=== PATIENT | female | born 1950 | race Caucasian/White ===

== ENCOUNTER 2019-10-12 18:57 | Inpatient (IN) | payer MEDICARE, OTHER ==
[2019-10-12 19:35] LABS: #Eosinphils 0.3 thou/uL (0.0-0.7); #Lymphocytes 3.9 thou/uL (1.20-3.40); #Monocytes 1.1 thou/uL (0.11-0.59); #Neutrophils 9.9 thou/uL (1.40-6.50); %Basophils 0.2 % (0.0-1.0); %Eosinophils 2.2 % (0.0-10.0); %Lymphocytes 25.3 % (21.0-51.0); %Neutrophils 65.2 % (42.0-75.0); Hemoglobin 12.2 g/dL (12.0-16.0); Mean Corpuscular HGB CONC 34.4 g/dL (32.0-36.0); Mean Corpuscular Hemoglobin 30.8 pg (27.0-31.0); Mean Corpuscular Volume 89.6 fL (78.0-98.0); Mean Platelet Volume 7.9 fL (7.4-10.4); Platelet Count 363 thou/uL (130-400); RBC Distribution Width 13.4 % (11.5-14.5); Red Blood Cell (RBC) Count 3.96 mill/uL (4.20-5.40); White Blood Cell (WBC) Count 15.3 thou/uL (4.8-10.8)
--- NOTE | 2019-10-12 19:39 | RAD ---
PORTABLE SUPINE CHEST: 10/12/19 HISTORY: Cough. COMPARISON: 03/21/17 study. Heart size is within normal limits for supine technique. Mediastinal structures are unremarkable. The lungs are clear of infiltrates. IMPRESSION: No active intrathoracic disease. POS: [facility]
[2019-10-12 19:49] LABS: ALT (SGPT) 10 U/L (8-55); AST (SGOT) 14 U/L (5-34); Albumin 3.5 g/dL (3.4-4.8); Alkaline Phosphatase 159 U/L (40-110); Anion Gap 15 mmol/L (10-20); BUN (Urea Nitrogen) 22 mg/dL (9.8-20.1); Bilirubin, Total 0.3 mg/dL (0.2-1.2); Calc. Creatinine Clearance 0 mL/min (70-130); Calcium 8.4 mg/dL (7.8-10.44); Carbon Dioxide 23 mmol/L (23-31); Chloride 99 mmol/L (98-107); Estimated GFR-MDRD 22; Globulin 3.2 g/dL (2.4-3.5); Glucose 115 mg/dL (80-115); Potassium 4.4 mmol/L (3.5-5.1); Protein, Total 6.7 g/dL (6.0-8.3); Sodium 133 mmol/L (136-145)
[2019-10-12] MEDS ORDERED: Norepinephrine 8 MG/0.9% NS 250 ML ONE (20:02)
[2019-10-12] MEDS ORDERED: Cyclobenzaprine 10 MG TAB ONE (20:02)
[2019-10-12 20:07] LABS: Bacteria/HPF 2+ HPF (None Seen); Bilirubin Negative (Negative); Blood, Urine Negative (Negative); Clarity Turbid (Clear); Glucose, Urine (Dipstick) Normal (Negative); Leukocyte 25 Leu/uL (Negative); Nitrite Negative (Negative); Protein, Urine (Dipstick) 20 mg/dL (Neg-Trace); Urobilinogen Normal mg/dL (Less than 2)
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
--- NOTE | 2019-10-12 21:04 | RAD ---
XR Chest 1 View Portable HISTORY: Central line placement COMPARISON: Earlier examination the same day. FINDINGS: A right-sided central line is been placed. The catheter tip overlies the distal superior ve na cava. No signs of pneumothorax. No other interval change. IMPRESSION: Central line placement. No pneumothorax.
[2019-10-12] MEDS: Lactated Ringer's 1,000 ML IV SCH (22:13)
[2019-10-12 22:15] VITALS: BMI 42.4
[2019-10-12] MEDS ORDERED: Norepinephrine 8 MG/0.9% NS 250 ML IVPB SCH (22:30)
[2019-10-12 23:51] LABS: Troponin I Less than 0.010 ng/mL (< 0.028)
[2019-10-13] MEDS ORDERED: Promethazine 25 MG TAB PO PRN (01:56)
[2019-10-13] MEDS ORDERED: PROVENTIL INHALER 6.7 G (200 INHALATIONS) INH PRN (01:56)
[2019-10-13 02:56] LABS: Troponin I Less than 0.010 ng/mL (< 0.028)
[2019-10-13] MEDS: Lactated Ringer's 1,000 ML IV SCH ×3 (05:27→21:36)
[2019-10-13] MEDS: Acetaminophen 325 MG TAB PO PRN (05:37)
[2019-10-13 06:04] LABS: Anion Gap 11 mmol/L (10-20); BUN (Urea Nitrogen) 16 mg/dL (9.8-20.1); Calc. Creatinine Clearance 67 mL/min (70-130); Calcium 7.8 mg/dL (7.8-10.44); Carbon Dioxide 25 mmol/L (23-31); Chloride 107 mmol/L (98-107); Estimated GFR-MDRD 43; Glucose 109 mg/dL (80-115); Potassium 4.4 mmol/L (3.5-5.1); Sodium 139 mmol/L (136-145)
[2019-10-13 06:05] LABS: #Basophils 0.1 thou/uL (0.0-0.2); #Eosinphils 0.3 thou/uL (0.0-0.7); #Lymphocytes 3.1 thou/uL (1.20-3.40); #Monocytes 1.1 thou/uL (0.11-0.59); #Neutrophils 9.7 thou/uL (1.40-6.50); %Basophils 0.5 % (0.0-1.0); %Eosinophils 2.4 % (0.0-10.0); %Lymphocytes 21.5 % (21.0-51.0); %Monocytes 7.3 % (0.0-10.0); %Neutrophils 68.3 % (42.0-75.0); Hemoglobin 12.1 g/dL (12.0-16.0); Mean Corpuscular HGB CONC 33.7 g/dL (32.0-36.0); Mean Corpuscular Hemoglobin 30.5 pg (27.0-31.0); Mean Corpuscular Volume 90.3 fL (78.0-98.0); Mean Platelet Volume 7.9 fL (7.4-10.4); Platelet Count 336 thou/uL (130-400); RBC Distribution Width 13.3 % (11.5-14.5); Red Blood Cell (RBC) Count 3.97 mill/uL (4.20-5.40); White Blood Cell (WBC) Count 14.3 thou/uL (4.8-10.8)
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
[2019-10-13] MEDS ORDERED: Enoxaparin Sodium 40 MG/0.4 ML SYRINGE SC SCH (09:00)
[2019-10-13] MEDS: DULoxetine 30 MG CAP PO SCH ×2 (09:01→20:09)
[2019-10-13] MEDS: Gabapentin 100 MG CAP PO SCH ×2 (09:01→20:09)
[2019-10-13] MEDS: Aspirin Chewable 81 MG TAB PO SCH (09:01)
[2019-10-13] MEDS: Famotidine 20 MG TAB PO SCH (09:01)
[2019-10-13] MEDS: Heparin 5,000 UNITS/ML VIAL SC SCH ×3 (09:02→20:09)
[2019-10-13 09:23] LABS: Bilirubin Negative (Negative); Blood, Urine 2+ (Negative); Clarity Clear (Clear); Glucose, Urine (Dipstick) Normal (Negative); Leukocyte 500 Leu/uL (Negative); Nitrite Negative (Negative); Protein, Urine (Dipstick) 20 mg/dL (Neg-Trace); RBC/HPF 21-50 HPF (0-3); Squamous Epithelial 0-3 HPF (0-3); Urobilinogen Normal mg/dL (Less than 2); WBC/HPF Greater than 50 HPF (0-3)
[2019-10-13 09:33] LABS: Transitional Epithelial 0-3 HPF (None Seen)
[2019-10-13 09:34] LABS: Bacteria/HPF Rare-Few HPF (None Seen)
[2019-10-13] MEDS ORDERED: Vancomycin 1.5 GRAM/300 ML BAG 1.5 GM in Premix Bag 1 BAG IVPB SCH (10:00)
[2019-10-13] MEDS ORDERED: Piperacillin/Tazobactam 3.375 GM in Sodium Chloride 0.9% 100 ML IVPB SCH (12:00)
--- NOTE | 2019-10-13 12:19 | PDOC.BPN ---
- Brief Progress Note Appreciate recs from Dr. Meadows, recs stop levophed, stop abx, pull central line and transfer to floor Discussed case with attending physician for primary team, would like patient to remain in ICU for 4 hours as she has been difficult to wean off of levophed and then transfer to floor if still doing well. Patient appears well clinically. Tolerating PO, chatting with her daughter at bedside. Levophed off for 30 minutes now. Agree with stopping vanc/zosyn. Will de-escalate to rocephin for now
[2019-10-13] MEDS ORDERED: cefTRIAXone\\ROCEPHIN 1 GM in Sodium Chloride 0.9% 100 ML IVPB SCH (13:00)
--- NOTE | 2019-10-13 13:58 | CON ---
DATE OF CONSULTATION: HISTORY OF PRESENT ILLNESS: Bridgette Kim is a 69-year-old female. She admits she took too much of her medicine yesterday. Usually her daughter manages her medicines. There were out at [employer] shopping and did get home late. She is awake, alert, and back to her baseline according to her daughter now. She presented with altered mental status. PAST MEDICAL HISTORY: Remarkable for; 1. Cervical disk herniation. 2. History of irritable bowel. 3. History of hypertension. 4. History of anxiety and depression. 5. Reported history of COPD. 6. History of an appendectomy. 7. History of cholecystectomy. FAMILY HISTORY: Negative for lung disease in early age. SOCIAL HISTORY: She is a nonsmoker and nondrinker. REVIEW OF SYSTEMS: Ten points otherwise negative. PHYSICAL EXAMINATION: VITAL SIGNS: On exam, her blood pressure is 114/74, heart rate is 81, respiratory rate is 15, and oximetry is 95. Intakes and outputs negative 987. HEENT: Pupils are equal. Sclerae are anicteric. Extraocular movements are intact. NECK: Without lymphadenopathy. She has a right IJ. LUNGS: Clear. HEART: Regular rhythm. S1 and S2 are normal. ABDOMEN: Soft and nontender. EXTREMITIES: Without clubbing, cyanosis, or edema. NEURO: Grossly nonfocal. DIAGNOSTIC DATA: Chest x-ray shows no alveolar infiltrates. IMPRESSION AND PLAN: Antivert drug overdose. There is nothing that lead me to believe that she has sepsis. I would discontinue her central line. I will continue on her home medications. Her renal function is essentially normal now. I suspect she was dry yesterday. There is no reason to continue vancomycin in her and no reason to continue Zosyn in my opinion. She can continue IV fluids, but needs to begin ambulating with assistance for physical therapy. She can transfer out of the critical care unit to the fourth floor in my opinion. TIME SPENT: This is a 70-minute consult, 50% of the time spent on the unit coordinating care. Job ID: [id number]
[2019-10-14] MEDS: Acetaminophen 325 MG TAB PO PRN (04:40)
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
[2019-10-14 05:50] LABS: #Eosinphils 0.4 thou/uL (0.0-0.7); #Monocytes 0.7 thou/uL (0.11-0.59); #Neutrophils 5.6 thou/uL (1.40-6.50); %Basophils 0.1 % (0.0-1.0); %Eosinophils 4.5 % (0.0-10.0); %Lymphocytes 30.5 % (21.0-51.0); %Monocytes 6.8 % (0.0-10.0); %Neutrophils 58.1 % (42.0-75.0); Hemoglobin 11.4 g/dL (12.0-16.0); Mean Corpuscular HGB CONC 32.3 g/dL (32.0-36.0); Mean Corpuscular Hemoglobin 29.8 pg (27.0-31.0); Mean Corpuscular Volume 92.2 fL (78.0-98.0); Platelet Count 295 thou/uL (130-400); RBC Distribution Width 13.4 % (11.5-14.5); Red Blood Cell (RBC) Count 3.84 mill/uL (4.20-5.40); White Blood Cell (WBC) Count 9.7 thou/uL (4.8-10.8)
[2019-10-14 06:09] LABS: Anion Gap 11 mmol/L (10-20); BUN (Urea Nitrogen) 9 mg/dL (9.8-20.1); Calc. Creatinine Clearance 97 mL/min (70-130); Calcium 8.3 mg/dL (7.8-10.44); Carbon Dioxide 25 mmol/L (23-31); Chloride 108 mmol/L (98-107); Estimated GFR-MDRD 66; Glucose 143 mg/dL (80-115); Potassium 4.3 mmol/L (3.5-5.1); Sodium 140 mmol/L (136-145)
[2019-10-14] MEDS ORDERED: cefTRIAXone\\ROCEPHIN 1 GM in Sodium Chloride 0.9% 100 ML IM SCH (08:00)
[2019-10-14] MEDS: Famotidine 20 MG TAB PO SCH (08:02)
[2019-10-14] MEDS: Gabapentin 100 MG CAP PO SCH (08:02)
[2019-10-14] MEDS: DULoxetine 30 MG CAP PO SCH (08:02)
[2019-10-14] MEDS: Heparin 5,000 UNITS/ML VIAL SC SCH (08:02)
[2019-10-14] MEDS: Aspirin Chewable 81 MG TAB PO SCH (08:02)
[2019-10-14 13:33] VITALS: BP 154/85; TEMP 97.7
--- NOTE | 2019-10-15 15:38 | EKG ---
Test Reason : Blood Pressure : / mmHG Vent. Rate : 073 BPM Atrial Rate : 073 BPM P-R Int : 150 ms QRS Dur : 072 ms QT Int : 390 ms P-R-T Axes : 028 005 022 degrees QTc Int : 429 ms Normal sinus rhythm Low voltage QRS Borderline ECG Confirmed by DAVID FOSTER DO ([id number]), film or videotape editor AMBAR ARNETT ([id number]) on 10/15/2019 3:38:09 PM Referred By: Confirmed By:DAVID FOSTER DO
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
== END 2019-10-14 13:39 | disposition home or self-care (01) | DRG 917 ==
LOC: ERS 18:57 → CCU 20:06 → T4-B 10-13 23:53
PROVIDERS: ADMIT Family Medicine; ATTEND Family Medicine
DX: T42.8X1A Poisoning by antiparkinsonism drugs and other central muscle-tone depressants, accidental (unintentional), initial encounter (principal); R57.8 Other shock; N17.0 Acute kidney failure with tubular necrosis; N39.0 Urinary tract infection, site not specified; Z68.41 Body mass index [BMI] 40.0-44.9, adult; M54.10 Radiculopathy, site unspecified; I10 Essential (primary) hypertension; F32.9 Major depressive disorder, single episode, unspecified; F41.9 Anxiety disorder, unspecified; R40.2362 Coma scale, best motor response, obeys commands, at arrival to emergency department; R40.2142 Coma scale, eyes open, spontaneous, at arrival to emergency department; R40.2252 Coma scale, best verbal response, oriented, at arrival to emergency department; K58.9 Irritable bowel syndrome, unspecified; E66.9 Obesity, unspecified; Z88.1 Allergy status to other antibiotic agents; Z91.041 Radiographic dye allergy status; Z88.2 Allergy status to sulfonamides; Z91.048 Other nonmedicinal substance allergy status; Z66 Do not resuscitate
CPT/HCPCS: 36415; 71045; 80048; 80053; 81001; 81003; 81015; 82570; 83605; 84484; 84540; 85025; 87040; 87086; 93005; J0696; J1644; J3370; J3490; J7050

== ENCOUNTER 2023-03-01 20:33 | Inpatient (IN) | payer MEDICARE, OTHER ==
[2023-03-01 21:19] LABS: #Basophils 0.1 thou/uL (0.0-0.2); #Eosinphils 0.3 thou/uL (0.0-0.7); #Monocytes 1.5 thou/uL (0.11-0.59); #Neutrophils 16.3 thou/uL (1.40-6.50); %Basophils 0.3 % (0.0-1.0); %Eosinophils 1.2 % (0.0-10.0); %Lymphocytes 9.1 % (21.0-51.0); %Monocytes 7.6 % (0.0-10.0); %Neutrophils 81.2 % (42.0-75.0); Hemoglobin 15.1 g/dL (12.0-16.0); Mean Corpuscular Hemoglobin 28.7 pg (27.0-31.0); Mean Corpuscular Volume 98.7 fl (78.0-98.0); Platelet Count 421 10x3/uL (130-400); RBC Distribution Width 13.4 % (11.5-14.5); Red Blood Cell (RBC) Count 5.27 mill/uL (4.20-5.40); White Blood Cell (WBC) Count 20.1 10x3/uL (4.8-10.8)
[2023-03-01] MEDS ORDERED: Vancomycin 1 GM/200 ML (FROZEN) BAG ONE (21:21)
[2023-03-01] MEDS ORDERED: Piperacillin/Tazobactam 3.375 GM VIAL ONE (21:21)
[2023-03-01 21:49] LABS: ALT (SGPT) 450 U/L (8-55); AST (SGOT) 527 U/L (5-34); Albumin 3.5 g/dL (3.4-4.8); Alkaline Phosphatase 131 U/L (40-110); Anion Gap 25 mmol/L (10-20); BUN (Urea Nitrogen) 52 mg/dL (9.8-20.1); Bilirubin, Total 0.4 mg/dL (0.2-1.2); Calc. Creatinine Clearance 0 mL/min (70-130); Calcium 8.8 mg/dL (7.8-10.44); Carbon Dioxide 22 mmol/L (23-31); Chloride 101 mmol/L (98-107); Estimated GFR 9; Globulin 3.6 g/dL (2.4-3.5); Glucose 119 mg/dL (83-110); Potassium 5.4 mmol/L (3.5-5.1); Protein, Total 7.1 g/dL (5.8-8.1); Sodium 143 mmol/L (136-145)
[2023-03-01] MEDS ORDERED: NOREPINEPHRINE 8 MG/250 ML-D5W 250 ML ONE ×2 (21:54→21:58)
[2023-03-01 22:22] LABS: CKMB 10.3 ng/mL (0-6.6)
[2023-03-01 22:39] LABS: Bacteria/HPF 1+ HPF (None Seen); Bilirubin Negative (Negative); Blood, Urine 1+ (Negative); Clarity Turbid (Clear); Glucose, Urine (Dipstick) Normal (Negative); Ketone, Urine Negative (Negative); Leukocyte Negative Leu/uL (Negative); Nitrite Negative (Negative); Protein, Urine (Dipstick) 70 mg/dL (Neg-Trace); Specific Gravity, Urine 1.024 (1.002-1.036); WBC/HPF 0-3 HPF (0-3)
[2023-03-01 22:42] LABS: CellaVision Operator ID lab.sh2; Macrocytosis SLIGHT = 6-15 cells HPF (0-5); Platelet Morphology Comment Platelets Increased; Polychromasia SLIGHT = 2-3 cells HPF (0-2)
[2023-03-01 23:59] LABS: Actual Bicarbonate (HCO3a) 21.2 mEq/L (22-28); Base Excess (BEa) -11.2 mEq/L (-2.0 to +3.0); Calcium, Ionized (arterial) 1.03 mmol/L (1.12-1.30); Carboxyhemoglobin (COHb) 1.9 gm% (0.0-3.0); Hematocrit-ABG 39 % (36.0-47.0); Hemoglobin (Hb) 13.4 g/dL (12.0-16.0); O2 Tension (PaO2), arterial 76.2 mmHg (> 70.0); Potassium - ABG Lab 4.75 mmol/L (3.70-5.30)
[2023-03-02 00:01] LABS: pH, Arterial 7.021 (7.35-7.45)
[2023-03-02 00:02] LABS: CO2 Tension 83.7 mmHg (35.0-45.0); Puncture Site RRA
[2023-03-02] MEDS ORDERED: Ventilator Sedation Protocol 1 EACH FS SCH ×2 (00:11→00:15)
[2023-03-02] MEDS ORDERED: Electrolyte Replacement Protocol 1 EACH IVPB ONE (00:11)
[2023-03-02] MEDS ORDERED: Acetaminophen 650 MG Suppository PR PRN ×2 (00:11→02:16)
[2023-03-02] MEDS ORDERED: Calcium Gluc 4.6 MEQ/10 ML (100 MG/ML) SLOW IVP SCH (00:16)
[2023-03-02] MEDS ORDERED: Ipratropium/Albuterol 3 ML NEB NEB PRN (00:16)
[2023-03-02] MEDS ORDERED: HumaLOG 300 UNITS/3 ML VIAL SC PRN (00:17)
[2023-03-02] MEDS ORDERED: Dextrose 5% in Water 1,000 ML IV PRN (00:17)
[2023-03-02] MEDS ORDERED: Dextrose 50% Abboject 50 ML SYRINGE SLOW IVP PRN (00:17)
[2023-03-02] MEDS ORDERED: Fentanyl BOLUS 250 ML IVPB PRN (00:30)
[2023-03-02] MEDS ORDERED: Fentanyl CADD 100 ML IV SCH (00:30)
[2023-03-02] MEDS ORDERED: DISCONTINUE PREVIOUS NARCOTIC PAIN MEDICATIONS AND BENZODIAZEPINES FS SCH (00:30)
[2023-03-02] MEDS ORDERED: Propofol BOLUS 1,000 MG/100 ML VIAL IV PRN (00:30)
[2023-03-02] MEDS ORDERED: Morphine 2 MG/ML VIAL SLOW IVP PRN (00:30)
[2023-03-02] MEDS ORDERED: Lorazepam 2 MG/ML VIAL SLOW IVP PRN (00:30)
[2023-03-02 00:33] LABS: Lactic Acid 1.1 mmol/L (0.5-2.2)
[2023-03-02 00:52] LABS: Actual Bicarbonate (HCO3a) 21.2 mEq/L (22-28); Base Excess (BEa) -8.9 mEq/L (-2.0 to +3.0); Calcium, Ionized (arterial) 1.03 mmol/L (1.12-1.30); Carboxyhemoglobin (COHb) 1.9 gm% (0.0-3.0); Hematocrit-ABG 40 % (36.0-47.0); Hemoglobin (Hb) 13.5 g/dL (12.0-16.0); O2 Tension (PaO2), arterial 134.2 mmHg (> 70.0)
[2023-03-02 00:55] LABS: pH, Arterial 7.128 (7.35-7.45)
[2023-03-02 00:56] LABS: CO2 Tension 65.5 mmHg (35.0-45.0); Puncture Site RRA
[2023-03-02] MEDS ORDERED: Vancomycin Dose by Levels Sliding Scale (Wt 71-99) FS SCH (01:15)
[2023-03-02] MEDS ORDERED: Vancomycin 1 GM in Premix Bag 1 BAG IVPB SCH (01:15)
[2023-03-02 01:37] LABS: Actual Bicarbonate (HCO3a) 22.6 mEq/L (22-28); Base Excess (BEa) -9.2 mEq/L (-2.0 to +3.0); Calcium, Ionized (arterial) 1.03 mmol/L (1.12-1.30); Carboxyhemoglobin (COHb) 2.2 gm% (0.0-3.0); Hematocrit-ABG 40 % (36.0-47.0); Hemoglobin (Hb) 13.7 g/dL (12.0-16.0); O2 Tension (PaO2), arterial 84.5 mmHg (> 70.0)
[2023-03-02 01:39] LABS: pH, Arterial 7.064 (7.35-7.45)
[2023-03-02] MEDS ORDERED: Rocuronium Bromide 10 MG/ML (10ML VIAL) ONE (01:59)
[2023-03-02 02:24] LABS: Troponin I 0.031 ng/mL (< 0.028)
[2023-03-02 02:27] LABS: Acetaminophen Less than 10.0 mcg/mL (10.0-30.0); Alcohol Less than 10 mg/dL (Less than 10); CK (CPK) 17 U/L (29-168); Lipase 19 U/L (8-78); Salicylate Less than 8.0 mg/dL (15.0-30.0)
[2023-03-02 02:46] LABS: HBSAg Index 0.21 S/CO (0-0.99); Hep A IgM AB Non-Reactive S/CO (NonReactive); Hep A IgM S/CO 0.23 S/CO (0-0.79); Hep B Surf Ag Non-Reactive S/CO (NonReactive); Hep C IgG Ab Non-Reactive S/CO (NonReactive); Hep C Index 0.11 S/CO (0-0.79); Hepatitis B Core IgM Abs Non-Reactive S/CO (NonReactive)
[2023-03-02 02:55] LABS: Actual Bicarbonate (HCO3a) 18.1 mEq/L (22-28); Base Excess (BEa) -7.3 mEq/L (-2.0 to +3.0); CO2 Tension 36.3 mmHg (35.0-45.0); Calcium, Ionized (arterial) 1.03 mmol/L (1.12-1.30); Carboxyhemoglobin (COHb) 1.4 gm% (0.0-3.0); Hematocrit-ABG 40 % (36.0-47.0); Hemoglobin (Hb) 13.7 g/dL (12.0-16.0); O2 Tension (PaO2), arterial 72.1 mmHg (> 70.0); Potassium - ABG Lab 5.07 mmol/L (3.70-5.30); pH, Arterial 7.316 (7.35-7.45)
[2023-03-02 02:57] LABS: ALV-art Gradient 239.025 mmHg (0-20); Puncture Site RBA
[2023-03-02 03:56] LABS: Troponin I 2.057 ng/mL (< 0.028)
[2023-03-02] MEDS: NOREPINEPHRINE 8 MG/250 ML-D5W 250 ML IVPB SCH ×3 (05:05→21:55)
[2023-03-02] MEDS: Dextrose 5 %-0.45 % NaCl 1,000 ML IV SCH ×2 (05:11→13:33)
[2023-03-02] MEDS: Propofol 1,000 MG/100 ML VIAL IV PRN ×3 (05:35→20:54)
[2023-03-02] MEDS ORDERED: Meropenem 1 GM in Sodium Chloride 0.9% 100 ML IVPB SCH (06:00)
[2023-03-02] MEDS: HumaLOG 300 UNITS/3 ML VIAL SC PRN (06:30)
[2023-03-02 06:42] LABS: Troponin I 2.678 ng/mL (< 0.028)
[2023-03-02 06:46] VITALS: BMI 33.6
[2023-03-02] MEDS ORDERED: Cefepime 1 GM in Sodium Chloride 0.9% 100 ML IVPB SCH (09:00)
[2023-03-02] MEDS ORDERED: Pantoprazole 40 MG VIAL IVP SCH (09:00)
[2023-03-02] MEDS ORDERED: Heparin 10,000 UNITS/ 10 ML VIAL ONE (09:35)
[2023-03-02] MEDS: Pantoprazole 40 MG VIAL IVP SCH ×2 (10:06→21:16)
[2023-03-02 11:13] LABS: Troponin I 2.875 ng/mL (< 0.028)
[2023-03-02] MEDS ORDERED: Vancomycin Diaylsis Sliding Scale (Wt 71-99) FS SCH (11:45)
[2023-03-02] MEDS ORDERED: Meropenem 500 MG in Sodium Chloride 0.9% 100 ML IVPB SCH ×2 (14:00→18:00)
[2023-03-02 18:29] LABS: #Eosinphils 0.1 thou/uL (0.0-0.7); #Monocytes 1.3 thou/uL (0.11-0.59); %Basophils 0.2 % (0.0-1.0); %Eosinophils 0.7 % (0.0-10.0); %Lymphocytes 17.6 % (21.0-51.0); %Monocytes 7.3 % (0.0-10.0); %Neutrophils 73.7 % (42.0-75.0); Mean Corpuscular HGB CONC 31.3 g/dL (32.0-36.0); Mean Corpuscular Hemoglobin 29.3 pg (27.0-31.0); Mean Platelet Volume 11.1 fL (7.4-10.4); Platelet Count 342 10x3/uL (130-400); RBC Distribution Width 13.4 % (11.5-14.5); Red Blood Cell (RBC) Count 3.86 mill/uL (4.20-5.40); White Blood Cell (WBC) Count 17.6 10x3/uL (4.8-10.8)
[2023-03-02 18:35] LABS: Hemoglobin 11.3 g/dL (12.0-16.0)
[2023-03-02 18:36] LABS: Mean Corpuscular Volume 93.5 fl (78.0-98.0)
[2023-03-02 18:42] LABS: Anion Gap 13 mmol/L (10-20); BUN (Urea Nitrogen) 61 mg/dL (9.8-20.1); Calc. Creatinine Clearance 21 mL/min (70-130); Carbon Dioxide 18 mmol/L (23-31); Chloride 110 mmol/L (98-107); Estimated GFR 15; Glucose 152 mg/dL (83-110); Potassium 3.9 mmol/L (3.5-5.1); Sodium 137 mmol/L (136-145)
[2023-03-03 01:00] LABS: HBCM Index 0.09 S/CO (0-0.79); HBSAg Index 0.18 S/CO (0-0.99); Hep A IgM AB Non-Reactive S/CO (NonReactive); Hep A IgM S/CO 0.13 S/CO (0-0.79); Hep B Surf Ag Non-Reactive S/CO (NonReactive); Hep C IgG Ab Non-Reactive S/CO (NonReactive); Hep C Index 0.08 S/CO (0-0.79); Hepatitis B Core IgM Abs Non-Reactive S/CO (NonReactive)
[2023-03-03] MEDS ORDERED: Activase 2 MG VIAL CATH SCH (01:15)
[2023-03-03] MEDS ORDERED: Sterile Water 10 ML VIAL IVP SCH (01:15)
[2023-03-03] MEDS: Propofol 1,000 MG/100 ML VIAL IV PRN (04:40)
[2023-03-03] MEDS: Dextrose 5 %-0.45 % NaCl 1,000 ML IV SCH ×3 (05:18→22:15)
[2023-03-03 05:40] LABS: #Basophils 0.1 thou/uL (0.0-0.2); #Eosinphils 0.3 thou/uL (0.0-0.7); #Monocytes 1.4 thou/uL (0.11-0.59); #Neutrophils 11.5 thou/uL (1.40-6.50); %Basophils 0.3 % (0.0-1.0); %Eosinophils 1.8 % (0.0-10.0); %Lymphocytes 15.3 % (21.0-51.0); %Monocytes 8.6 % (0.0-10.0); Hemoglobin 10.4 g/dL (12.0-16.0); Mean Corpuscular HGB CONC 30.7 g/dL (32.0-36.0); Mean Corpuscular Hemoglobin 28.5 pg (27.0-31.0); Mean Corpuscular Volume 92.9 fl (78.0-98.0); Mean Platelet Volume 11.4 fL (7.4-10.4); Platelet Count 286 10x3/uL (130-400); RBC Distribution Width 13.4 % (11.5-14.5); Red Blood Cell (RBC) Count 3.65 mill/uL (4.20-5.40); White Blood Cell (WBC) Count 15.7 10x3/uL (4.8-10.8)
[2023-03-03 05:53] LABS: INR-International Normal Ratio 1.2
[2023-03-03 05:54] LABS: PTT 30.2 sec (22.9-36.1)
[2023-03-03 06:08] LABS: ALT (SGPT) 182 U/L (8-55); AST (SGOT) 101 U/L (5-34); Albumin 2.5 g/dL (3.4-4.8); Alkaline Phosphatase 104 U/L (40-110); Anion Gap 10 mmol/L (10-20); BUN (Urea Nitrogen) 37 mg/dL (9.8-20.1); Bilirubin, Total 0.4 mg/dL (0.2-1.2); Calc. Creatinine Clearance 34 mL/min (70-130); Calcium 7.8 mg/dL (7.8-10.44); Carbon Dioxide 22 mmol/L (23-31); Chloride 109 mmol/L (98-107); Estimated GFR 27; Globulin 2.6 g/dL (2.4-3.5); Glucose 154 mg/dL (83-110); Potassium 3.7 mmol/L (3.5-5.1); Protein, Total 5.1 g/dL (5.8-8.1); Sodium 137 mmol/L (136-145)
[2023-03-03 06:49] LABS: Hypochromia SLIGHT = 6-15 cells HPF (0-5); Platelet Morphology Comment Platelets Normal; Polychromasia SLIGHT = 2-3 cells HPF (0-2)
[2023-03-03 07:17] LABS: Actual Bicarbonate (HCO3a) 22.7 mEq/L (22-28); Base Excess (BEa) -1.9 mEq/L (-2.0 to +3.0); CO2 Tension 38.2 mmHg (35.0-45.0); Carboxyhemoglobin (COHb) 0.4 gm% (0.0-3.0); Hematocrit-ABG 30 % (36.0-47.0); Hemoglobin (Hb) 10.3 g/dL (12.0-16.0); O2 Tension (PaO2), arterial 86.3 mmHg (> 70.0); Potassium - ABG Lab 3.65 mmol/L (3.70-5.30); Puncture Site RRA; pH, Arterial 7.392 (7.35-7.45)
[2023-03-03 08:29] LABS: Vancomycin, Random 11.9 ug/mL (See Comment)
[2023-03-03] MEDS: HumaLOG 300 UNITS/3 ML VIAL SC PRN (09:16)
[2023-03-03] MEDS: Heparin 5,000 UNITS/ML VIAL SC SCH ×2 (09:17→21:59)
[2023-03-03] MEDS: Pantoprazole 40 MG VIAL IVP SCH ×2 (09:17→21:55)
[2023-03-03] MEDS ORDERED: Vancomycin HCl 750 MG in Sodium Chloride 0.9% 250 ML 250 ML IVPB SCH (11:45)
[2023-03-03] MEDS ORDERED: Vancomycin Dose by Levels Sliding Scale (Wt 71-99) FS SCH (11:45)
[2023-03-03] MEDS: Meropenem 500 MG in Sodium Chloride 0.9% 100 ML IVPB SCH (12:29)
[2023-03-03] MEDS: Albumin 25% 25 GM/100 ML BOT IVPB SCH ×2 (12:29→20:11)
[2023-03-04] MEDS: Albumin 25% 25 GM/100 ML BOT IVPB SCH ×2 (00:45→05:42)
[2023-03-04] MEDS: Meropenem 500 MG in Sodium Chloride 0.9% 100 ML IVPB SCH (00:45)
[2023-03-04 04:30] LABS: #Eosinphils 0.3 thou/uL (0.0-0.7); #Monocytes 1.2 thou/uL (0.11-0.59); #Neutrophils 8.9 thou/uL (1.40-6.50); %Basophils 0.2 % (0.0-1.0); %Lymphocytes 17.4 % (21.0-51.0); %Monocytes 9.5 % (0.0-10.0); %Neutrophils 69.8 % (42.0-75.0); Hemoglobin 8.9 g/dL (12.0-16.0); Mean Corpuscular HGB CONC 30.6 g/dL (32.0-36.0); Mean Corpuscular Hemoglobin 28.6 pg (27.0-31.0); Mean Corpuscular Volume 93.6 fl (78.0-98.0); Mean Platelet Volume 10.5 fL (7.4-10.4); Platelet Count 203 10x3/uL (130-400); RBC Distribution Width 13.2 % (11.5-14.5); Red Blood Cell (RBC) Count 3.11 mill/uL (4.20-5.40); White Blood Cell (WBC) Count 12.8 10x3/uL (4.8-10.8)
[2023-03-04 05:19] LABS: ALT (SGPT) 105 U/L (8-55); AST (SGOT) 40 U/L (5-34); Albumin 3.4 g/dL (3.4-4.8); Alkaline Phosphatase 92 U/L (40-110); Anion Gap 9 mmol/L (10-20); BUN (Urea Nitrogen) 20 mg/dL (9.8-20.1); Bilirubin, Total 0.6 mg/dL (0.2-1.2); Calc. Creatinine Clearance 71 mL/min (70-130); Calcium 8.3 mg/dL (7.8-10.44); Carbon Dioxide 24 mmol/L (23-31); Chloride 112 mmol/L (98-107); Estimated GFR 65; Globulin 2.3 g/dL (2.4-3.5); Glucose 119 mg/dL (83-110); Protein, Total 5.7 g/dL (5.8-8.1); Sodium 141 mmol/L (136-145)
[2023-03-04] MEDS: Heparin 5,000 UNITS/ML VIAL SC SCH ×2 (10:08→20:08)
[2023-03-04] MEDS: Pantoprazole 40 MG VIAL IVP SCH ×2 (10:08→20:09)
[2023-03-04 12:26] LABS: Vancomycin, Random 7.4 ug/mL (See Comment)
[2023-03-04] MEDS: Meropenem 1 GM in Sodium Chloride 0.9% 100 ML IVPB SCH ×2 (14:16→20:09)
[2023-03-04] MEDS ORDERED: Benzonatate 100 MG CAP PO SCH (16:00)
[2023-03-04] MEDS: Dextrose 5 %-0.45 % NaCl 1,000 ML IV SCH (16:48)
[2023-03-04] MEDS: Benzonatate 100 MG CAP PO SCH (20:08)
[2023-03-04] MEDS ORDERED: Ondansetron PF 4 MG/2 ML Vial IVP PRN (23:38)
[2023-03-04] MEDS ORDERED: Ondansetron ODT 4 MG TAB PO PRN (23:38)
[2023-03-05] MEDS ORDERED: Melatonin 3 MG TAB PO PRN (00:52)
[2023-03-05] MEDS: Meropenem 1 GM in Sodium Chloride 0.9% 100 ML IVPB SCH ×3 (04:06→20:19)
[2023-03-05 04:46] LABS: #Basophils 0.1 thou/uL (0.0-0.2); #Eosinphils 0.4 thou/uL (0.0-0.7); #Monocytes 1.4 thou/uL (0.11-0.59); #Neutrophils 8.2 thou/uL (1.40-6.50); %Basophils 0.5 % (0.0-1.0); %Eosinophils 3.1 % (0.0-10.0); %Lymphocytes 20.5 % (21.0-51.0); %Monocytes 10.7 % (0.0-10.0); Hemoglobin 9.4 g/dL (12.0-16.0); Mean Corpuscular HGB CONC 31.2 g/dL (32.0-36.0); Mean Corpuscular Hemoglobin 29.3 pg (27.0-31.0); Mean Corpuscular Volume 93.8 fl (78.0-98.0); Platelet Count 223 10x3/uL (130-400); RBC Distribution Width 13.2 % (11.5-14.5); Red Blood Cell (RBC) Count 3.21 mill/uL (4.20-5.40)
[2023-03-05 05:10] LABS: ALT (SGPT) 69 U/L (8-55); AST (SGOT) 24 U/L (5-34); Albumin 3.2 g/dL (3.4-4.8); Alkaline Phosphatase 90 U/L (40-110); Anion Gap 11 mmol/L (10-20); BUN (Urea Nitrogen) 14 mg/dL (9.8-20.1); Bilirubin, Total 0.5 mg/dL (0.2-1.2); Calc. Creatinine Clearance 87 mL/min (70-130); Calcium 8.4 mg/dL (7.8-10.44); Carbon Dioxide 23 mmol/L (23-31); Chloride 109 mmol/L (98-107); Estimated GFR 79; Globulin 2.5 g/dL (2.4-3.5); Glucose 109 mg/dL (83-110); Potassium 3.9 mmol/L (3.5-5.1); Protein, Total 5.7 g/dL (5.8-8.1); Sodium 139 mmol/L (136-145)
[2023-03-05] MEDS: Dextrose 5 %-0.45 % NaCl 1,000 ML IV SCH ×2 (06:14→20:19)
[2023-03-05] MEDS: Benzonatate 100 MG CAP PO SCH ×3 (11:02→20:19)
[2023-03-05] MEDS: Heparin 5,000 UNITS/ML VIAL SC SCH ×2 (11:02→20:19)
[2023-03-05] MEDS: DULoxetine 60 MG CAP PO SCH (11:02)
[2023-03-05] MEDS: Pantoprazole 40 MG VIAL IVP SCH (11:03)
[2023-03-05] MEDS ORDERED: Promethazine 25 MG TAB PO PRN (13:19)
[2023-03-05] MEDS ORDERED: Non-Formulary Item 1 EACH (Omeprazole [Omeprazole] 20 MG Capsule.Dr) PO SCH (21:00)
[2023-03-06] MEDS: Meropenem 1 GM in Sodium Chloride 0.9% 100 ML IVPB SCH ×2 (05:32→13:18)
[2023-03-06 06:49] LABS: #Eosinphils 0.6 thou/uL (0.0-0.7); #Monocytes 1.4 thou/uL (0.11-0.59); #Neutrophils 6.8 thou/uL (1.40-6.50); %Basophils 0.3 % (0.0-1.0); %Eosinophils 4.8 % (0.0-10.0); %Lymphocytes 22.2 % (21.0-51.0); %Monocytes 11.9 % (0.0-10.0); %Neutrophils 56.4 % (42.0-75.0); Hemoglobin 9.7 g/dL (12.0-16.0); Mean Corpuscular HGB CONC 30.3 g/dL (32.0-36.0); Mean Corpuscular Hemoglobin 28.3 pg (27.0-31.0); Mean Corpuscular Volume 93.3 fl (78.0-98.0); Mean Platelet Volume 10.7 fL (7.4-10.4); Platelet Count 224 10x3/uL (130-400); Red Blood Cell (RBC) Count 3.43 mill/uL (4.20-5.40)
[2023-03-06 07:20] LABS: Anion Gap 9 mmol/L (10-20); BUN (Urea Nitrogen) 10 mg/dL (9.8-20.1); Carbon Dioxide 24 mmol/L (23-31); Chloride 107 mmol/L (98-107); Sodium 136 mmol/L (136-145)
[2023-03-06 07:21] LABS: Calc. Creatinine Clearance 98 mL/min (70-130); Calcium 8.3 mg/dL (7.8-10.44); Estimated GFR 89; Glucose 104 mg/dL (83-110)
[2023-03-06] MEDS ORDERED: Aspirin Chewable 81 MG TAB PO SCH (09:00)
[2023-03-06] MEDS: Heparin 5,000 UNITS/ML VIAL SC SCH ×2 (09:06→21:07)
[2023-03-06] MEDS: DULoxetine 60 MG CAP PO SCH (09:06)
[2023-03-06] MEDS: Benzonatate 100 MG CAP PO SCH ×3 (09:06→21:07)
[2023-03-06] MEDS: Saccharomyces boulardii 250 MG CAP PO SCH (10:06)
[2023-03-06] MEDS: Dextrose 5 %-0.45 % NaCl 1,000 ML IV SCH (10:22)
[2023-03-06] MEDS: Amoxicillin/Potassium Clav 875 MG TAB PO SCH (21:07)
[2023-03-06] MEDS ORDERED: Acetaminophen 325 MG TAB PO PRN (22:27)
[2023-03-06] MEDS ORDERED: Senokot S 8.6-50 MG TAB PO PRN (23:50)
[2023-03-06] MEDS: Bisacodyl 5 MG TAB PO PRN (23:59)
[2023-03-07] MEDS: Dextrose 5 %-0.45 % NaCl 1,000 ML IV SCH (01:22)
[2023-03-07 04:08] LABS: #Eosinphils 0.6 thou/uL (0.0-0.7); #Monocytes 1.4 thou/uL (0.11-0.59); #Neutrophils 7.7 thou/uL (1.40-6.50); %Basophils 0.2 % (0.0-1.0); %Eosinophils 4.1 % (0.0-10.0); %Monocytes 10.1 % (0.0-10.0); Hemoglobin 10.1 g/dL (12.0-16.0); Mean Corpuscular Hemoglobin 28.5 pg (27.0-31.0); Mean Platelet Volume 10.9 fL (7.4-10.4); Platelet Count 240 10x3/uL (130-400); RBC Distribution Width 12.5 % (11.5-14.5); Red Blood Cell (RBC) Count 3.55 mill/uL (4.20-5.40); White Blood Cell (WBC) Count 13.5 10x3/uL (4.8-10.8)
[2023-03-07 04:25] LABS: Manual Diff?? YES
[2023-03-07 04:36] LABS: Anion Gap 11 mmol/L (10-20); BUN (Urea Nitrogen) 9 mg/dL (9.8-20.1); Calc. Creatinine Clearance 95 mL/min (70-130); Calcium 8.7 mg/dL (7.8-10.44); Carbon Dioxide 26 mmol/L (23-31); Chloride 104 mmol/L (98-107); Estimated GFR 86; Glucose 111 mg/dL (83-110); Potassium 4.1 mmol/L (3.5-5.1); Sodium 137 mmol/L (136-145)
[2023-03-07 04:56] LABS: Band 7 % (5-11); Eosinophils 4 % (0-10); Lymphocytes 27 % (21-51); Monocytes 8 % (0-10); Neutrophil 51 % (42-75); Platelet Morphology Comment Platelets Normal; Polychromasia MODERATE = 3-4 cells HPF (0-2); Reactive Lymphocytes 4 % (0-10); Total Cell Count 104
[2023-03-07] MEDS: Saccharomyces boulardii 250 MG CAP PO SCH (09:51)
[2023-03-07] MEDS: Amoxicillin/Potassium Clav 875 MG TAB PO SCH ×2 (09:51→14:52)
[2023-03-07] MEDS: DULoxetine 60 MG CAP PO SCH (09:51)
[2023-03-07] MEDS: Heparin 5,000 UNITS/ML VIAL SC SCH (09:51)
[2023-03-07] MEDS: Benzonatate 100 MG CAP PO SCH ×2 (09:51→14:52)
[2023-03-07 11:04] VITALS: TEMP 98.1
[2023-03-07] MEDS: Bisacodyl 5 MG TAB PO PRN (11:06)
[2023-03-07 12:03] VITALS: BP 153/89
[2023-03-07] MEDS ORDERED: Propranolol 40 MG TAB PO SCH (21:00)
== END 2023-03-07 15:33 | disposition home health service (06) | DRG 871 ==
LOC: ERS 20:33 → CCU 23:21 → 2NO 03-04 12:13
PROVIDERS: ADMIT Internal Medicine; ATTEND Internal Medicine
PROC: 3E03329 Introduction of Other Anti-infective into Peripheral Vein, Percutaneous Approach (ICD-10-PCS; principal; 2023-03-01)
PROC: 5A1945Z Respiratory Ventilation, 24-96 Consecutive Hours (ICD-10-PCS; 2023-03-01)
PROC: 3E033XZ Introduction of Vasopressor into Peripheral Vein, Percutaneous Approach (ICD-10-PCS; 2023-03-01)
PROC: 0BH17EZ Insertion of Endotracheal Airway into Trachea, Via Natural or Artificial Opening (ICD-10-PCS; 2023-03-01)
PROC: 0D9670Z Drainage of Stomach with Drainage Device, Via Natural or Artificial Opening (ICD-10-PCS; 2023-03-01)
PROC: 02H633Z Insertion of Infusion Device into Right Atrium, Percutaneous Approach (ICD-10-PCS; 2023-03-01)
PROC: 4A133R1 Monitoring of Arterial Saturation, Peripheral, Percutaneous Approach (ICD-10-PCS; 2023-03-01)
PROC: 0T9B70Z Drainage of Bladder with Drainage Device, Via Natural or Artificial Opening (ICD-10-PCS; 2023-03-01)
PROC: 30233J1 Transfusion of Nonautologous Serum Albumin into Peripheral Vein, Percutaneous Approach (ICD-10-PCS; 2023-03-01)
PROC: 02HV33Z Insertion of Infusion Device into Superior Vena Cava, Percutaneous Approach (ICD-10-PCS; 2023-03-02)
PROC: 5A1D70Z Performance of Urinary Filtration, Intermittent, Less than 6 Hours Per Day (ICD-10-PCS; 2023-03-02)
DX: A41.9 Sepsis, unspecified organism (principal); I21.A1 Myocardial infarction type 2; R65.21 Severe sepsis with septic shock; J18.9 Pneumonia, unspecified organism; J96.01 Acute respiratory failure with hypoxia; J96.02 Acute respiratory failure with hypercapnia; K72.00 Acute and subacute hepatic failure without coma; J69.0 Pneumonitis due to inhalation of food and vomit; N17.0 Acute kidney failure with tubular necrosis; N17.9 Acute kidney failure, unspecified; E87.20 Acidosis, unspecified; K57.32 Diverticulitis of large intestine without perforation or abscess without bleeding; K92.2 Gastrointestinal hemorrhage, unspecified; G93.49 Other encephalopathy; J44.0 Chronic obstructive pulmonary disease with (acute) lower respiratory infection; E88.81 Metabolic syndrome and other insulin resistance; E66.01 Morbid (severe) obesity due to excess calories; Z68.36 Body mass index [BMI] 36.0-36.9, adult; F32.A Depression, unspecified; K76.89 Other specified diseases of liver; G89.29 Other chronic pain; M54.9 Dorsalgia, unspecified; E87.5 Hyperkalemia; K58.9 Irritable bowel syndrome, unspecified; M50.20 Other cervical disc displacement, unspecified cervical region; T40.2X1A Poisoning by other opioids, accidental (unintentional), initial encounter; D64.9 Anemia, unspecified; I10 Essential (primary) hypertension; E11.9 Type 2 diabetes mellitus without complications; T43.211A Poisoning by selective serotonin and norepinephrine reuptake inhibitors, accidental (unintentional), initial encounter; Z78.1 Physical restraint status; Z91.041 Radiographic dye allergy status; Z88.2 Allergy status to sulfonamides; Z88.8 Allergy status to other drugs, medicaments and biological substances; Z91.09 Other allergy status, other than to drugs and biological substances; Z79.899 Other long term (current) drug therapy; Z79.82 Long term (current) use of aspirin; Z90.710 Acquired absence of both cervix and uterus; Z90.49 Acquired absence of other specified parts of digestive tract; Z98.890 Other specified postprocedural states; Z87.440 Personal history of urinary (tract) infections
CPT/HCPCS: 31500; 36415; 36416; 36556; 36600; 70450; 71045; 74176; 74230; 80048; 80053; 80074; 80202; 80307; 81003; 81015; 82271; 82533; 82550; 82553; 82805; 83605; 83690; 83880; 84145; 84443; 84484; 85025; 85610; 85730; 86850; 86900; 86901; 87040; 87077; 87086; 87149; 87186; 90935; 93005; 93010; 94002; 94003; 94640; 96365; 96366; 96375; C9113; G0257; J0612; J1642; J1644; J1815; J2185; J2405; J2543; J2704; J2997; J3010; J3370; J3370-JW; J3490; J7042; J7050; J7611; J7620; P9047; Q0162